=== PATIENT | female | born 1990 | race Caucasian/White ===

== ENCOUNTER 2017-09-27 17:57 | Emergency (ER) | payer OTHER ==
[2017-09-27 18:01] VITALS: BP 136/79; PULSE 79; RESP 18; TEMP 97.5
--- NOTE | 2017-09-27 18:54 | ED ---
Extremity Problem HPI - General Chief complaint: Extremity Problem,Nontraumatic Stated complaint: rt shoulder pain Time Seen by Provider: 09/27/17 18:34 Source: patient Mode of arrival: ambulatory Limitations: no limitations - History of Present Illness Initial comments: 26-year-old female patient presents to the emergency department today for evaluation of increased right shoulder pain over the last 4 days. Patient states that she has had joint pain intermittently over the last 9-10 months. Patient states she is approximately 6 weeks . Denies any abdominal pain , vaginal bleeding, or vaginal discharge. States she has been taking Tylenol and applying a heating pad to the painful areas where he doesn't seem to help much. Patient states that she did have an increase in this pain the last time she is as well. Patient states that she was instructed to follow-up with a neurologist but hasn't been able to do this yet. Patient is concerned she may have fibromyalgia. She denies any fevers or chills. She denies any known injuries. States that the pain does increase when she attempts to lift something or move the shoulder. Denies any joint redness or swelling. Patient denies any recent rash, shortness breath, chest pain, nausea, vomiting, diarrhea , constipation, numbness, tingling, dizziness, weakness, hematuria, dysuria, urinary urgency, urinary frequency, headache, visual changes, or any other complaints. - Related Data Home Medications Medication Instructions Recorded Confirmed Pnv,Calcium 72/Iron/Folic Acid 1 tab PO HS 01/28/16 09/27/17 [ Plus Tablet] Allergies Allergy/AdvReac Type Severity Reaction Status Date / Time Tetanus Vaccines and Toxoid Allergy Swelling Verified 09/27/17 18:55 [Tetanus Vaccines & Toxoid] Review of Systems ROS Statement: Those systems with pertinent positive or pertinent negative responses have been documented in the HPI. ROS Other: All systems not noted in ROS Statement are negative. Past Medical History Past Medical History: No Reported History History of Any Multi-Drug Resistant Organisms: None Reported Past Surgical History: No Surgical Hx Reported Past Anesthesia/Blood Transfusion Reactions: No Reported Reaction Past Psychological History: No Psychological Hx Reported Smoking Status: Former smoker Past Alcohol Use History: None Reported, Occasional Past Drug Use History: None Reported - Past Family History Mother Family Medical History: No Reported History General Exam Limitations: no limitations General appearance: alert, in no apparent distress, other (This is a well- developed, well-nourished adult female patient in no acute distress. Vital signs upon presentation are temperature 97.5F, pulse 79, respirations 18, blood pressure 136/79, pulse ox 100% on room air.) Eye exam: Present: normal appearance, PERRL, EOMI. Absent: scleral icterus, conjunctival injection, periorbital swelling ENT exam: Present: normal exam, normal oropharynx, mucous membranes moist Respiratory exam: Present: normal lung sounds bilaterally. Absent: respiratory distress, wheezes, rales, rhonchi, stridor Cardiovascular Exam: Present: regular rate, normal rhythm, normal heart sounds. Absent: systolic murmur, diastolic murmur, rubs, gallop, clicks GI/Abdominal exam: Present: soft, normal bowel sounds. Absent: distended, tenderness, guarding, rebound, rigid Extremities exam: Present: normal inspection, full ROM, normal capillary refill , other (Extremities are pink, warm, and dry. Cap refills less than 3 seconds. Radial pulses are 2+ and equal bilaterally). Absent: tenderness, pedal edema , joint swelling, calf tenderness Neurological exam: Present: alert, oriented X3, CN II-XII intact Psychiatric exam: Present: normal affect, normal mood Skin exam: Present: warm, dry, intact, normal color. Absent: rash Course Vital Signs 09/27/17 17:58 Temperature 97.5 F L Pulse Rate 79 Respiratory 18 Rate Blood Pressure 136/79 O2 Sat by Pulse 100 Oximetry Medical Decision Making - Medical Decision Making 26 old female patient proximal with weeks presented to the emergency department today for evaluation of joint pain especially to the right shoulder. Physical examination was unremarkable. Neurovascular status intact. Patient had no injury to the shoulder. She's had no fever, chills, red or swollen joints. Patient has been going on for the last 9 months or so. We did discuss limitations in our testing and treatment due to her being . Did discuss follow-up with her primary care physician for possible autoimmune testing and referral to rheumatology. She is instructed to follow-up with the neurologist that she has been instructed in the past. She is instructed take Tylenol for pain control. Apply warm moist heat to the painful areas. Gentle stretching exercises. Return parameters discussed in detail. She verbalizes understanding and agrees with this plan. Disposition Clinical Impression: Joint pain Disposition: HOME SELF-CARE Condition: Good Instructions: Arthralgia (ED), Shoulder Pain (ED) Additional Instructions: Continue taking tylenol for pain symptoms. Apply heat to painful areas. Perform gentle range of motion exercises. Follow up with OBGYN and discuss safe natural pain relief methods. Follow up with your primary care physician for autoimmune testing and possible referral to [facility]. Return here immediately for any new, worsening, or concerning symptoms. Is patient prescribed a controlled substance at d/c from ED?: No Referrals: Rhoda Jimenez MD [Primary Care Provider] - 1-2 days Time of Disposition: 18:54
== END 2017-09-27 18:57 | disposition home or self-care (01) ==
LOC: EC 17:57
DX: O99.89 Other specified diseases and conditions complicating pregnancy, childbirth and the puerperium (principal); M25.511 Pain in right shoulder; Z3A.01 Less than 8 weeks gestation of pregnancy; Z87.891 Personal history of nicotine dependence; Z88.7 Allergy status to serum and vaccine
CPT/HCPCS: 99283

== ENCOUNTER 2018-04-29 23:45 | Outpatient (CLI) | payer OTHER ==
[2018-04-30 02:38] VITALS: BP 134/88; PULSE 105; RESP 16; TEMP 97.8
--- NOTE | 2018-06-02 11:53 | P.MSEPDOC ---
Presenting Problems - Arrival Data Date of Arrival on Unit: 04/29/18 Time of Arrival on Unit: 23:45 Mode of Transport: Wheelchair - Complaint OB-Reason for Admission/Chief Complaint: Possible Onset of Labor Comment: contx 5 minutes apart since 2100. Medical History - Information : 7 Para: 4 Term: 4 : 0 Abortions: Spontaneous or Elective: 2 Number of Living Children: 4 - Gestational Age Gestational Age by NANCY (wks/days): 37 Weeks and 4 Days Review of Systems - Review of Systems Constitutional: No problems Breast: No problems ENT: No problems Cardiovascular: No problems Respiratory: No problems Gastrointestinal: No problems Genitourinary: No problems Musculoskeletal: No problems Neurological: No problems Skin: No problems Vital Signs - Temperature Temperature: 97.8 F Temperature Source: Axillary - Pulse Right Sitting Brachial Pulse Rate: 105 Pulse Assessment Method: Automatic Cuff - Respirations Respiratory Rate: 16 Oxygen Delivery Method: Room Air O2 Sat by Pulse Oximetry: 96 - Blood Pressure Right Arm Sitting Blood Pressure: 134/88 Blood Pressure Mean: 103 Blood Pressure Source: Automatic Cuff Medical Screen Scoring (Pre) - Cervical Exam Dilation: 1-3 cm = 1 Membranes: Intact - Uterine Contractions Frequency: > or = 36 weeks =2 Duration: > 40 seconds = 2 Intensity: N/A - Maternal Vital Signs Maternal Temperature: N/A Maternal Blood Pressure: N/A Signs of Preeclampsia: N/A Maternal Respirations: N/A - Pain Assessment Pain Location and Character: Lower, Abdomen Pain Scale Used: Numeric (1 - 10) Pain Intensity: 4 Pain Management Goal: 2 Pain Description: *Acute, Cramping Pain Radiation Location: n/a Pain Aggravating Factors: Activity - Assessment Baseline FHR: 150 Heart Rate - NICHD Category: Category I (Normal) = 0 NST: Reactive Position: N/A Station: N/A - Total Score Total Score (Pre): 5 - Level of Risk Level of Risk: Low (0-5) Physician Notification (Pre) - Physician Notified Physician Notified Date: 04/30/18 Physician Notified Time: 01:19 Physician/Practitioner Notifed:: uma Spoke With: uma New Order Received: Yes - Notification Comment Comment: monitor for another hour, recheck cervix and if no change, d/c home Disposition - Disposition OB Disposition: Discharge to home Discharge Date: 04/30/18 Discharge Time: 02:26 I agree with the RN Medical Screening Exam: Yes Risk & Benefit of care provided described in d/c instruction: Yes Diagnosis: FALSE LABOR AT OR AFTER 37 COMPLETED WEEKS OF GESTATION
== END 2018-04-30 02:26 | disposition home or self-care (01) ==
LOC: FBPOP 23:45
PROVIDERS: ATTEND Obstetrics & Gynecology
DX: O47.1 False labor at or after 37 completed weeks of gestation (principal); Z3A.37 37 weeks gestation of pregnancy
CPT/HCPCS: 59025; G0463; 99213

== ENCOUNTER 2018-05-14 05:49 | Inpatient (IN) | payer OTHER ==
[2018-05-14] MEDS ORDERED: OXYTOCIN 10 UNIT/ML 1 ML VIAL IM PRN (06:02)
[2018-05-14] MEDS ORDERED: LIDOCAINE 0.5% (PF) 5 MG/ML (50 ML SDV) SQ PRN (06:02)
[2018-05-14] MEDS ORDERED: CARBOPROST TROMETHAMINE 250 MCG/ML 1 ML AMP IM PRN (06:02)
[2018-05-14] MEDS ORDERED: TERBUTALINE 1 MG/ML VIAL SQ PRN (06:02)
[2018-05-14] MEDS ORDERED: METHYLERGONOVINE 0.2 MG/ML 1 ML AMP IM PRN (06:02)
[2018-05-14] MEDS: OXYTOCIN 20 UNITS/1000 ML NS 1,000 ML IV SCH (06:17)
[2018-05-14] MEDS: LACTATED RINGERS 1,000 ML IV SCH ×2 (06:17→10:19)
[2018-05-14 06:23] LABS: Basophils % (A) 0 %; Eosinophils # (A) 0.1 k/uL (0-0.7); Eosinophils % (A) 1 %; HCT 38.7 % (34.0-46.0); HGB 12.7 gm/dL (11.4-16.0); Lymphocytes # (A) 1.9 k/uL (1.0-4.8); Lymphocytes % (A) 19 %; MCH 29.5 pg (25.0-35.0); MCHC 32.7 g/dL (31.0-37.0); MCV 90.1 fL (80.0-100.0); Monocytes # (A) 0.4 k/uL (0-1.0); Monocytes % (A) 4 %; Neutrophils # (A) 7.3 k/uL (1.3-7.7); Neutrophils % (A) 72 %; Platelet Count 256 k/uL (150-450); RBC 4.29 m/uL (3.80-5.40); RDW 13.1 % (11.5-15.5); WBC 10.1 k/uL (3.8-10.6)
--- NOTE | 2018-05-14 08:31 | P.HPOB ---
History of Present Illness H&P Date: 05/14/18 Chief Complaint: IUP @ 39 4/7 weeks This is a 37-year-old 7 para 4024 at 39-4/7 weeks EDC of 05/17 consistent with LMP and 18 week ultrasound. Patient is noting good movement denies vaginal bleeding or loss of fluid at this time. On blood work she had a blood type of A+, rubella immune, hepatitis B surface antigen negative, HIV negative, RPR nonreactive, GBS negative. that presents to labor and delivery for elective induction of labor. Patient has been receiving care with myself since 13 weeks of gestation. Review of Systems Constitutional: Denies chills, Denies fatigue, Denies fever Ears, nose, mouth and throat: Denies headache Cardiovascular: Reports leg edema Respiratory: Denies cough, Denies dyspnea Gastrointestinal: Denies constipation, Denies diarrhea, Denies nausea, Denies vomiting Genitourinary: Denies Past Medical History Past Medical History: No Reported History History of Any Multi-Drug Resistant Organisms: None Reported Past Surgical History: No Surgical Hx Reported Past Anesthesia/Blood Transfusion Reactions: No Reported Reaction Past Psychological History: No Psychological Hx Reported Smoking Status: Never smoker Past Alcohol Use History: None Reported, Occasional Additional Past Alcohol Use History / Comment(s): none with Past Drug Use History: None Reported - Past Family History Mother Family Medical History: No Reported History Medications and Allergies Home Medications Medication Instructions Recorded Confirmed Type Pnv,Calcium 72/Iron/Folic Acid 1 tab PO HS 01/28/16 05/14/18 History [ Plus Tablet] Allergies Allergy/AdvReac Type Severity Reaction Status Date / Time amoxicillin Allergy Rash/Hives Verified 05/14/18 06:02 Tetanus Vaccines and Toxoid Allergy Swelling Verified 05/14/18 06:02 [Tetanus Vaccines & Toxoid] Exam Osteopathic Statement: *. No significant issues noted on an osteopathic structural exam other than those noted in the History and Physical/Consult. Vital Signs Temp Pulse Resp BP Pulse Ox 05/14/18 06:07 97.1 F L 81 18 132/87 96 Intake and Output 05/13/18 05/14/18 05/14/18 22:59 06:59 14:59 Other: Weight 79.379 kg Targeted physical exam was performed and the state in general this is a well- nourished well-developed female in no acute distress, she notes nonlabored breathing and lungs are clear to auscultation bilaterally, heart is noted to have regular rate and rhythm, abdomen is gravid and appropriate for gestational age, heart tones are noted to be reactive and she is jovan every 2-3 minutes on Pitocin. On cervical exam she is 3/50/-2 amniotomy is performed and clear fluid was obtained. Results Result Diagrams: 05/14/18 06:05 Assessment and Plan (1) Term Current Visit: Yes Status: Acute Code(s): Z34.80 - ENCOUNTER FOR SUPRVSN OF NORMAL , UNSP TRIMESTER SNOMED Code(s): 94497908 Plan: Patient is admitted for elective induction of labor, Pitocin induction of labor was begun this morning. Patient is undecided on pain management epidural is offered and she will decide as labor progresses. Anticipate spontaneous vaginal delivery later this afternoon.
[2018-05-14] MEDS ORDERED: BUTORPHANOL 1 MG/ML 1 ML VIAL IV PRN (11:03)
--- NOTE | 2018-05-14 12:56 | P.PROBDLV ---
Vaginal Delivery Note - . Vaginal Delivery Note: This is a very pleasant 27-year-old 7 para 4024 at 39-4/7 weeks that presents for elective induction of labor. Patient was started on Pitocin for induction of labor, and amniotomy was performed once regular contractions were noted. Clear fluid was noted on amniotomy. Patient progressed through labor eventually getting Stadol for pain relief. She progressed to complete began pushing and had a normal spontaneous vaginal delivery of a viable male , a loose nuchal cord was noted at delivery and this was delivered through. Afterwards the cord was then doubly clamped and cut and the infant was handed off to mom. A spontaneous cry was noted at the time of delivery. The placenta was then delivered spontaneously intact with a three-vessel cord being noted. On inspection the patient's vaginal vault no lacerations were noted. The uterus was noted to be firm and below the umbilicus at this time. Next para patient and tolerated delivery well and are resting comfortably.
[2018-05-14] MEDS ORDERED: BENZOCAINE/MENTHOL SPRAY 1 GM/SPRAY AEROSOL TOPICAL PRN (13:07)
[2018-05-14] MEDS ORDERED: ACETAMINOPHEN TAB 325 MG TAB PO PRN (13:07)
[2018-05-14] MEDS ORDERED: HYDROCORTISONE 2.5% RECTAL CREAM 30 GM TUBE RECTAL PRN (13:07)
[2018-05-14] MEDS ORDERED: diphenhydrAMINE 50 MG CAP PO PRN (13:07)
[2018-05-14] MEDS ORDERED: diphenhydrAMINE 50 MG/ML 1 ML VIAL IVP PRN ×2 (13:07)
[2018-05-14] MEDS ORDERED: ZOLPIDEM 5 MG TAB PO PRN (13:07)
[2018-05-14] MEDS ORDERED: WITCH HAZEL 1 EACH MED..PAD TOPICAL PRN (13:07)
[2018-05-14] MEDS ORDERED: diphenhydrAMINE 25 MG CAP PO PRN (13:07)
[2018-05-14] MEDS ORDERED: OXYTOCIN 20 UNITS/1000 ML NS 1,000 ML IV SCH (13:07)
[2018-05-14] MEDS ORDERED: SIMETHICONE 80 MG CHEWABLE PO PRN (13:07)
[2018-05-14] MEDS ORDERED: LANOLIN CREAM 5 GM TUBE TOPICAL PRN (13:07)
[2018-05-14] MEDS: IBUPROFEN 600 MG TAB PO PRN ×2 (16:05→22:40)
[2018-05-14] MEDS: SENNOSIDES-DOCUSATE SODIUM 1 EACH TAB PO SCH (20:13)
[2018-05-15 07:22] LABS: Basophils % (A) 0 %; Eosinophils # (A) 0.2 k/uL (0-0.7); Eosinophils % (A) 2 %; HCT 34.2 % (34.0-46.0); HGB 11.6 gm/dL (11.4-16.0); Lymphocytes # (A) 2.4 k/uL (1.0-4.8); Lymphocytes % (A) 21 %; MCH 30.5 pg (25.0-35.0); MCHC 33.8 g/dL (31.0-37.0); MCV 90.2 fL (80.0-100.0); Mean Platelet Volume 8.8; Monocytes # (A) 0.8 k/uL (0-1.0); Monocytes % (A) 7 %; Neutrophils # (A) 7.5 k/uL (1.3-7.7); Neutrophils % (A) 68 %; Platelet Count 219 k/uL (150-450); RDW 13.4 % (11.5-15.5); WBC 11.1 k/uL (3.8-10.6)
[2018-05-15] MEDS: IBUPROFEN 600 MG TAB PO PRN ×2 (07:45→20:47)
[2018-05-15] MEDS: SENNOSIDES-DOCUSATE SODIUM 1 EACH TAB PO SCH ×2 (07:45→20:47)
--- NOTE | 2018-05-15 08:06 | P.PNOBGVD ---
Subjective - Subjective Principal diagnosis: PPD 1 Interval history: Patient did well overnight. She has ambulated and voiding without difficulty. She is tolerating a regular diet without nausea or vomiting. She states her lochia is moderate. She denies pain or discomfort and wishes to stay until tomorrow. Patient reports: Reports appetite normal, Reports voiding normally, Reports pain well controlled, Reports ambulating normally [place]: doing well Objective - Latest Vital Signs Latest vital signs: Vital Signs Temp Pulse Resp BP Pulse Ox 05/15/18 00:00 74 16 115/70 05/14/18 19:48 97.3 F L 74 16 121/68 97 05/14/18 14:40 96.6 F L 76 16 118/73 05/14/18 13:35 70 16 117/83 05/14/18 13:00 77 16 114/67 05/14/18 12:45 68 16 109/57 05/14/18 12:30 96.9 F L 85 18 111/63 Intake and Output 05/14/18 05/15/18 05/15/18 22:59 06:59 14:59 Other: # Voids 2 1 - Exam Extremities: Present: normal Abdomen: Present: normal appearance, soft Uterus: Present: normal, firm - Labs Labs: Abnormal Lab Results - Last 24 Hours (Table) 05/15/18 Range/Units 07:02 WBC 11.1 H (3.8-10.6) k/uL Assessment and Plan (1) Term Current Visit: Yes Status: Acute Code(s): Z34.80 - ENCOUNTER FOR SUPRVSN OF NORMAL , UNSP TRIMESTER SNOMED Code(s): 49862290 (2) Status post vaginal delivery Current Visit: Yes Status: Acute Code(s): ZFH0386 - SNOMED Code(s): 922622386 Plan: Will continue routine care. Patient desires discharge home at 48 hours.
[2018-05-15] MEDS: PRENATAL VIT-IRON-FOLIC ACID 1 EACH CAP PO SCH ×2 (09:29→21:09)
[2018-05-16] MEDS: LACTATED RINGERS 1,000 ML IV SCH (06:22)
[2018-05-16] MEDS: OXYTOCIN 20 UNITS/1000 ML NS 1,000 ML IV SCH (06:29)
[2018-05-16] MEDS: SENNOSIDES-DOCUSATE SODIUM 1 EACH TAB PO SCH (08:00)
--- NOTE | 2018-05-16 08:14 | P.DS ---
Providers Date of admission: 05/14/18 05:49 Expected date of discharge: 05/16/18 Attending physician: Michelle Albert Primary care physician: Stated None - Discharge Diagnosis(es) (1) Term Current Visit: Yes Status: Acute (2) Status post vaginal delivery Current Visit: Yes Status: Acute Hospital Course: This is a very pleasant 27-year-old 7 para 4024 that presented to labor and delivery at 39-4/7 weeks for elective induction of labor. Patient was started on Pitocin and for induction of labor, amniotomy was performed and clear fluid was obtained. Patient progressed through labor eventually becoming uncomfortable and requesting Stadol 1. Patient progressed to complete began pushing and had normal spontaneous vaginal delivery of a viable male infant. Male delivered at 1219, weight of 7 lbs. 5 oz., Apgars of 9 and 9 at one and 5 minutes respectively. Patient's course has been uneventful. On this day #2 she is ambulating and voiding without difficulty. Her lochia is minimal. She denies concerns and is ready for discharge home. Patient Condition at Discharge: Good Plan - Discharge Summary New Discharge Prescriptions: No Action Pnv,Calcium 72/Iron/Folic Acid [ Plus Tablet] 1 tab PO HS Discharge Medication List Pnv,Calcium 72/Iron/Folic Acid [ Plus Tablet] 1 tab PO HS 01/28/16 [ History] Follow up Appointment(s)/Referral(s): Michelle Albert DO [Doctor of Osteopathic Medicine] - 4 Weeks Patient Instructions/Handouts: Vaginal Delivery (DC), Vaginal Delivery (GEN) Discharge Disposition: HOME SELF-CARE
[2018-05-16 17:12] VITALS: BP 98/54; PULSE 68; RESP 14; TEMP 98
== END 2018-05-16 20:33 | disposition home or self-care (01) | DRG 807 ==
LOC: 4FBP 05:49
PROVIDERS: ADMIT Obstetrics & Gynecology Obstetrics; ATTEND Obstetrics & Gynecology Obstetrics
PROC: 10E0XZZ Delivery of Products of Conception, External Approach (ICD-10-PCS; principal; 2018-05-14)
PROC: 10907ZC Drainage of Amniotic Fluid, Therapeutic from Products of Conception, Via Natural or Artificial Opening (ICD-10-PCS; 2018-05-14)
PROC: 3E033VJ Introduction of Other Hormone into Peripheral Vein, Percutaneous Approach (ICD-10-PCS; 2018-05-14)
DX: O69.81X0 Labor and delivery complicated by cord around neck, without compression, not applicable or unspecified (principal); Z37.0 Single live birth; Z3A.39 39 weeks gestation of pregnancy; Z88.0 Allergy status to penicillin; Z88.7 Allergy status to serum and vaccine
CPT/HCPCS: 85025; 86850; 86900; 86901

== ENCOUNTER 2019-04-03 21:05 | Emergency (ER) | payer OTHER ==
[2019-04-03 21:28] VITALS: BP 117/79; PULSE 78; RESP 16; TEMP 97.8
--- NOTE | 2019-04-03 21:42 | ED ---
Skin/Abscess/FB HPI - General Chief complaint: Skin/Abscess/Foreign Body Stated complaint: Skin Check Time Seen by Provider: 04/03/19 21:29 Source: patient Mode of arrival: ambulatory Limitations: no limitations - History of Present Illness Initial comments: 28 year female presenting for lice check. Mother states she is currently in a retirement was told she needed to have her head checked for lice. Patient states she has had some dry scalp, with mild itching. Denies noting any live insects. Remaining review of systems negative - Related Data Home Medications Medication Instructions Recorded Confirmed Pnv,Calcium 72/Iron/Folic Acid 1 tab PO HS 01/28/16 05/14/18 [ Plus Tablet] Previous Rx's Medication Instructions Recorded Permethrin 1% Creme Rinse [Nix 1 applicate TOPICAL ONCE 1 Days #1 04/03/19 Creme Rinse] bottle Allergies Allergy/AdvReac Type Severity Reaction Status Date / Time amoxicillin Allergy Rash/Hives Verified 04/03/19 21:26 Tetanus Vaccines and Toxoid Allergy Swelling Verified 04/03/19 21:26 [Tetanus Vaccines & Toxoid] Review of Systems ROS Statement: Those systems with pertinent positive or pertinent negative responses have been documented in the HPI. ROS Other: All systems not noted in ROS Statement are negative. Past Medical History Past Medical History: No Reported History History of Any Multi-Drug Resistant Organisms: None Reported Past Surgical History: No Surgical Hx Reported Past Anesthesia/Blood Transfusion Reactions: No Reported Reaction Past Psychological History: No Psychological Hx Reported Smoking Status: Never smoker Past Alcohol Use History: None Reported, Occasional Past Drug Use History: None Reported - Past Family History Mother Family Medical History: No Reported History General Exam - General Exam Comments Initial Comments: General: The patient is awake and alert, in no distress, and does not appear acutely ill. Eye: +3 mm pupils are equal, round and reactive to light, extra-ocular movements are intact. No nystagmus. There is normal conjunctiva bilaterally. No signs of icterus. Musculoskeletal: Normal ROM, no tenderness. Strength 5/5. Sensation intact. Radial pulses equal bilaterally 2+. Neurological: A&O x 3. CN II-XII intact grossly, There are no obvious motor or sensory deficits. Coordination appears grossly intact. Speech is normal. Skin: Skin is warm and dry and no rashes or lesions are noted. No infestation of hair noted. Dry scalp. No nits appreciated. Psychiatric: Cooperative, appropriate mood & affect, normal judgment. Limitations: no limitations Course Vital Signs 04/03/19 21:26 Temperature 97.8 F Pulse Rate 78 Respiratory 16 Rate Blood Pressure 117/79 O2 Sat by Pulse 98 Oximetry Medical Decision Making - Medical Decision Making 28-year-old female presenting today for chief complaint of lice check. No evidence of live infestation. No nits appreciated. Patient does have some dry areas of the scalp. No other abnormalities, given there is known infestation was in the retirement recommend treatment. Disposition Clinical Impression: Dry scalp Disposition: HOME SELF-CARE Condition: Good Instructions (If sedation given, give patient instructions): Pediculosis (ED) Additional Instructions: Please use medication as discussed. Please return to emergency room if the symptoms increase or worsen or for any other concerns. Prescriptions: Permethrin 1% Creme Rinse [Nix Creme Rinse] 1 applicate TOPICAL ONCE 1 Days #1 bottle Is patient prescribed a controlled substance at d/c from ED?: No Referrals: Rhoda Jimenez MD [Primary Care Provider] - 1-2 days Time of Disposition: 21:41
== END 2019-04-03 22:21 | disposition home or self-care (01) ==
LOC: EC 21:05
DX: L98.8 Other specified disorders of the skin and subcutaneous tissue (principal); Z88.0 Allergy status to penicillin; Z88.7 Allergy status to serum and vaccine
CPT/HCPCS: 99282

== ENCOUNTER 2020-02-25 23:06 | Emergency (ER) | payer OTHER ==
[2020-02-25 23:12] VITALS: TEMP 97.7
[2020-02-25] MEDS ORDERED: LORazepam 1 MG TAB PO STA (23:31)
--- NOTE | 2020-02-26 00:01 | ED ---
Chest Pain HPI - General Chief Complaint: Chest Pain Stated Complaint: Chest Pain Time Seen by Provider: 02/25/20 23:14 Source: patient Mode of arrival: ambulatory Limitations: no limitations - History of Present Illness Initial Comments: Patient is a 29-year-old female presenting to the emergency Department with complaints of chest pain that has been ongoing for the past 2 hours. 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 She thought that it could be her anxiety flaring up but then she started to feel some numbness going into her right hand and arm and then got worried. Patient states she does have a history of anxiety but has never had the numbness into her hands. She denies any recent fever, chills, cough, chest congestion. She denies history of blood clots. She denies any palpitations, recent travel. She is not on control. She states she is not at this time. She denies any medications, drug use. She has no further complaints at this time. Upon arrival to the ER, her vital signs are stable. - Related Data Home Medications Medication Instructions Recorded Confirmed Pnv,Calcium 72/Iron/Folic Acid 1 tab PO HS 01/28/16 05/14/18 [ Plus Tablet] Previous Rx's Medication Instructions Recorded Permethrin 1% Creme Rinse [Nix 1 applicate TOPICAL ONCE 1 Days #1 04/03/19 Creme Rinse] bottle LORazepam [Ativan] 1 mg PO HS 3 Days #3 tab 02/26/20 Allergies Allergy/AdvReac Type Severity Reaction Status Date / Time amoxicillin Allergy Rash/Hives Verified 02/25/20 23:12 Tetanus Vaccines and Toxoid Allergy Swelling Verified 02/25/20 23:12 [Tetanus Vaccines & Toxoid] Review of Systems ROS Statement: Those systems with pertinent positive or pertinent negative responses have been documented in the HPI. ROS Other: All systems not noted in ROS Statement are negative. EKG Findings - EKG Comments: EKG Findings:: Normal sinus rhythm with sinus arrhythmia, no signs of acute ischemia. Ventricular rate 71, NH interval 148, QTC 414. Past Medical History Past Medical History: No Reported History History of Any Multi-Drug Resistant Organisms: None Reported Past Surgical History: No Surgical Hx Reported Past Anesthesia/Blood Transfusion Reactions: No Reported Reaction Past Psychological History: No Psychological Hx Reported Smoking Status: Former smoker Past Alcohol Use History: Occasional Past Drug Use History: None Reported - Past Family History Mother Family Medical History: No Reported History General Exam - General Exam Comments Initial Comments: GENERAL: Patient is well-developed and well-nourished. Patient is nontoxic and in no acute distress, appears mildly anxious. HEAD: Atraumatic, normocephalic. EYES: Pupils equal round and reactive to light, extraocular movements intact, sclera anicteric, conjunctiva are normal. Eyelids were unremarkable. ENT: TMs normal, nares patent, oropharynx clear without exudates. Moist mucous m embranes. NECK: Normal range of motion, supple without lymphadenopathy or JVD. LUNGS: Unlabored respirations. Breath sounds clear to auscultation bilaterally and equal. No wheezes rales or rhonchi. HEART: Regular rate and rhythm without murmurs, rubs or gallops. ABDOMEN: Soft, nontender, normoactive bowel sounds. No guarding, no rebound. No masses appreciated. : Deferred MUSCULOSKELETAL: Normal extremities with adequate strength and normal range of motion, no pitting or edema. No clubbing or cyanosis. NEUROLOGICAL: Patient is alert and oriented x 3. Motor and sensory are also intact. Cranial nerves II through XII grossly intact. Symmetrical smile. Normal speech, normal gait. PSYCH: Normal mood, normal affect, mildly anxious. SKIN: Warm, Dry, normal turgor, no rashes or lesions noted. 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 She does have a history of anxiety. Her exam is unremarkable. Patient states she is having is having some tingling into her right hand. EKG shows normal sinus rhythm, no signs of acute ischemia. Chest x-ray shows no acute process. I did give patient a tablet of Ativan, she states improvement in her symptoms. She states the tingling has gone away, she is no longer having the chest discomfort. Patient states she will follow-up with her doctor regarding her anxiety. I will give her prescription for a few tablets of Ativan in the meantime. She is stable for discharge and she is in agreement with this plan of care. Return parameters were discussed with the patient and she verbalized understanding. Case discussed with Dr. [place]ellin. Disposition Clinical Impression: Atypical chest pain, Anxiety Disposition: HOME SELF-CARE Condition: Stable Instructions (If sedation given, give patient instructions): Anxiety (ED) Additional Instructions: Please return to the Emergency Department if symptoms worsen or any other concerns. Workup today was normal. May take an additional tablet of Ativan for similar symptoms. Please follow-up with PCP regarding anxiety and further management. Prescriptions: LORazepam [Ativan] 1 mg PO HS 3 Days #3 tab Is patient prescribed a controlled substance at d/c from ED?: Yes When asked, does pt state using other controlled substances?: No If prescribed controlled substance>3 days was MAPS reviewed?: Prescribed <3 Days Referrals: Rhoda Jimenez MD [Primary Care Provider] - 1-2 days
--- NOTE | 2020-02-26 00:16 | XR ---
EXAMINATION TYPE: XR chest 2V DATE OF EXAM: 02/26/2020 COMPARISON: NONE HISTORY: Chest pain TECHNIQUE: FINDINGS: Heart and mediastinum are normal. Lungs are clear. Diaphragm is normal. Bony thorax appears normal. IMPRESSION: Normal chest.
[2020-02-26 01:33] VITALS: BP 121/89; PULSE 58; RESP 17
== END 2020-02-26 01:28 | disposition home or self-care (01) ==
LOC: EC 23:06
DX: R07.89 Other chest pain (principal); F41.9 Anxiety disorder, unspecified; Z87.891 Personal history of nicotine dependence; Z88.0 Allergy status to penicillin; Z88.7 Allergy status to serum and vaccine
CPT/HCPCS: 71046; 93005; 99285

== ENCOUNTER 2024-01-11 18:52 | Emergency (ER) | payer OTHER ==
--- NOTE | 2024-01-11 19:32 | ED ---
Abdominal Pain HPI - General Chief Complaint: Abdominal Pain Stated Complaint: abd pain/R side pain Time Seen by Provider: 01/11/24 19:13 Source: patient, RN notes reviewed Mode of arrival: ambulatory Limitations: no limitations - History of Present Illness Initial Comments: This is a 33-year-old female who presents to the emergency department for abdomi nal pain. States that this started as more of an intermittent sharp pain in her abdomen yesterday, but has since become more constant and seems to be going between the left and right lower quadrant. Denies any nausea/vomiting or changes in bowel or bladder habits. Denies any fever/chills or history of similar pain in the past. MD Complaint: abdominal pain - Related Data Home Medications Medication Instructions Recorded Confirmed Pnv,Calcium 72/Iron/Folic Acid 1 tab PO HS 01/28/16 05/14/18 [ Plus Tablet] Previous Rx's Medication Instructions Recorded Permethrin 1% Creme Rinse [Nix 1 applicate TOPICAL ONCE 1 Days #1 04/03/19 Creme Rinse] bottle LORazepam [Ativan] 1 mg PO HS 3 Days #3 tab 02/26/20 Ketorolac [Toradol] 10 mg PO Q6HR PRN #15 tab 01/12/24 Allergies Allergy/AdvReac Type Severity Reaction Status Date / Time amoxicillin Allergy Rash/Hives Verified 01/11/24 19:00 Tetanus Vaccines and Toxoid Allergy Swelling Verified 01/11/24 19:00 [Tetanus Vaccines & Toxoid] Review of Systems ROS Statement: Those systems with pertinent positive or pertinent negative responses have been documented in the HPI. ROS Other: All systems not noted in ROS Statement are negative. Past Medical History Past Medical History: No Reported History History of Any Multi-Drug Resistant Organisms: None Reported Past Surgical History: No Surgical Hx Reported Past Anesthesia/Blood Transfusion Reactions: No Reported Reaction Past Psychological History: No Psychological Hx Reported Smoking Status: Former smoker Past Alcohol Use History: Occasional Past Drug Use History: None Reported - Past Family History Mother Family Medical History: No Reported History General Exam Limitations: no limitations General appearance: alert, in no apparent distress Head exam: Present: atraumatic, normocephalic, normal inspection Respiratory exam: Present: normal lung sounds bilaterally. Absent: respiratory distress, wheezes, rales, rhonchi, stridor Cardiovascular Exam: Present: regular rate, normal rhythm, normal heart sounds. Absent: systolic murmur, diastolic murmur, rubs, gallop, clicks GI/Abdominal exam: Present: soft, tenderness (RLQ), normal bowel sounds. Absent: distended Neurological exam: Present: alert, oriented X3, CN II-XII intact Psychiatric exam: Present: normal affect, normal mood Skin exam: Present: warm, dry, intact, normal color. Absent: rash Course Vital Signs 01/11/24 01/11/24 01/12/24 18:56 21:51 00:00 Temperature 97.9 F Pulse Rate 75 70 79 Respiratory 16 16 18 Rate Blood Pressure 127/88 115/79 113/80 O2 Sat by Pulse 100 100 97 Oximetry 01/12/24 01/12/24 03:21 04:23 Temperature 97.7 F Pulse Rate 70 64 Respiratory 18 17 Rate Blood Pressure 102/76 113/81 O2 Sat by Pulse 97 100 Oximetry Medical Decision Making - Medical Decision Making This is a 33 year old female who presents to the emergency department for abdominal pain. Was pt. sent in by a medical professional or institution? @ -No Did you speak to anyone other than the patient for history? @ -No Did you review nursing and triage notes? @ -Yes, and I agree, it is accurate with regards to the patient's symptoms. Were old charts reviewed? @ -No Differential Diagnosis? @ -Differential Abdominal Pain Women: Appendicitis, Cholecystitis, diverticulosis, ischemic bowel, pancreatitis, hepatitis, UTI, gastroenteritis, AAA, incarcerated hernia, bowel obstruction, constipation, inflammatory bowel, hepatitis, peptic ulcer disease, splenic infarction, perforated viscus, vulvitis, ovarian torsion, PID, kidney stone, placenta abruption, this is not meant to be an all-inclusive list EKG interpreted by me (3pts min.)? @ -Not obtained X-rays interpreted by me (1pt min.)? @ -Not obtained CT interpreted by me (1pt min.)? @ -CT scan of the abdomen and pelvis obtained. My interpretation identifies no dilation of large or small bowel loops. U/S interpreted by me (1pt. min.)? @ -Pelvic ultrasound obtained. My interpretation identifies no evidence of ovarian torsion. What testing was considered but not performed? (CT, X-rays, U/S, labs)? Why? @ -None What meds were considered but not given? Why? @ -None Did you discuss the management of the patient with other professionals? @ -No Did you reconcile home meds? @ -No Was smoking cessation discussed for >3mins.? @ -No Was critical care preformed (if so, how long)? @ -No Were there social determinants of health that impacted care today? How? (Homelessness, low income, unemployed, alcoholism, drug addiction, transportation, low edu. Level, literacy, decrease access to med. care, penitentiary, rehab)? @ -No Was there de-escalation of care discussed even if they declined? (Discuss DNR or withdrawal of care, Hospice)? @ -No What co-morbidities impacted this encounter? (DM, HTN, Smoking, COPD, CAD, Cancer, CVA, Hep., AIDS, mental health diagnosis, sleep apnea, morbid obesity)? @ -None Was patient admitted / discharged? @ -Discharged. Lab work unremarkable. Urinalysis negative for signs of infection. CT scan of the abdomen and pelvis obtained revealing no acute process. She did continue to complain of severe lower abdominal/pelvic pain and we subsequently proceeded with a pelvic ultrasound for evaluation. This revealed a heterogeneously dense retroverted uterus and a 1.6 cm left ovarian simple cyst. Findings reviewed with the patient. Symptoms well-controlled in emergency department. Advised to follow-up with [facility] regarding the heterogeneously dense uterus in the event she has something like adenomyosis or endometriosis contributing to her symptoms. Prescription for Toradol provided for symptomatic management. Patient discharged home in stable condition. Case discussed with ED attending Dr. Sahu. Return precautions reviewed in depth, the patient is instructed to return to the emergency department with any new, worsening, or concerning symptoms. Patient verbalized understanding. Undiagnosed new problem with uncertain prognosis? @ -None Drug Therapy requiring intensive monitoring for toxicity (Heparin, Nitro, Insulin, Cardizem)? @ -None Were any procedures done? @ -None Diagnosis/symptom? @ -Abdominal pain, abnormal uterus on ultrasound Acute, or Chronic, or Acute on Chronic? @ -Acute Uncomplicated (without systemic symptoms) or Complicated (systemic symptoms)? @ -Uncomplicated Side effects of treatment? @ -None Exacerbation, Progression, or Severe Exacerbation] @ -Not applicable Poses a threat to life or bodily function? @ -Unlikely - Lab Data Result diagrams: 01/11/24 19:31 01/11/24 19:31 Lab Results 01/11/24 01/11/24 01/11/24 Range/Units 19:31 19:31 19:31 WBC 7.5 (3.8-10.6) k/uL RBC 4.36 (3.80-5.40) m/uL Hgb 13.6 (11.4-16.0) gm/dL Hct 40.4 (34.0-46.0) % MCV 92.7 (80.0-100.0) fL MCH 31.2 (25.0-35.0) pg MCHC 33.6 (31.0-37.0) g/dL RDW 12.7 (11.5-15.5) % Plt Count 267 (150-450) k/uL MPV 8.2 Neutrophils % 61 % Lymphocytes % 28 % Monocytes % 6 % Eosinophils % 1 % Basophils % 1 % Neutrophils # 4.6 (1.3-7.7) k/uL Lymphocytes # 2.1 (1.0-4.8) k/uL Monocytes # 0.5 (0-1.0) k/uL Eosinophils # 0.1 (0-0.7) k/uL Basophils # 0.0 (0-0.2) k/uL Sodium 138 (137-145) mmol/L Potassium 4.6 (3.5-5.1) mmol/L Chloride 105 (98-107) mmol/L Carbon Dioxide 26 (22-30) mmol/L Anion Gap 7 mmol/L BUN 9 (7-17) mg/dL Creatinine 0.83 (0.52-1.04) mg/dL Est GFR (CKD-EPI)AfAm >90 (>60 ml/min/1.73 sqM) Est GFR (CKD-EPI)NonAf >90 (>60 ml/min/1.73 sqM) Glucose 104 H (74-99) mg/dL Plasma Lactic Acid Lalo 0.9 (0.7-2.0) mmol/L Calcium 9.2 (8.4-10.2) mg/dL Total Bilirubin 0.7 (0.2-1.3) mg/dL AST 21 (14-36) U/L ALT 11 (4-34) U/L Alkaline Phosphatase 35 L (38-126) U/L Total Protein 6.4 (6.3-8.2) g/dL Albumin 3.9 (3.5-5.0) g/dL Amylase 57 (30-110) U/L Lipase 173 (23-300) U/L HCG, Qual Not Detected Urine Color Urine Appearance (Clear) Urine pH (5.0-8.0) Ur Specific [place] (1.001-1.035) Urine Protein (Negative) Urine Glucose (UA) (Negative) Urine Ketones (Negative) Urine Blood (Negative) Urine Nitrite (Negative) Urine Bilirubin (Negative) Urine Urobilinogen (<2.0) mg/dL Ur Leukocyte Esterase (Negative) Urine HCG, Qual (Not Detectd) 01/11/24 01/11/24 Range/Units 19:32 19:32 WBC (3.8-10.6) k/uL RBC (3.80-5.40) m/uL Hgb (11.4-16.0) gm/dL Hct (34.0-46.0) % MCV (80.0-100.0) fL MCH (25.0-35.0) pg MCHC (31.0-37.0) g/dL RDW (11.5-15.5) % Plt Count (150-450) k/uL MPV Neutrophils % % Lymphocytes % % Monocytes % % Eosinophils % % Basophils % % Neutrophils # (1.3-7.7) k/uL Lymphocytes # (1.0-4.8) k/uL Monocytes # (0-1.0) k/uL Eosinophils # (0-0.7) k/uL Basophils # (0-0.2) k/uL Sodium (137-145) mmol/L Potassium (3.5-5.1) mmol/L Chloride (98-107) mmol/L Carbon Dioxide (22-30) mmol/L Anion Gap mmol/L BUN (7-17) mg/dL Creatinine (0.52-1.04) mg/dL Est GFR (CKD-EPI)AfAm (>60 ml/min/1.73 sqM) Est GFR (CKD-EPI)NonAf (>60 ml/min/1.73 sqM) Glucose (74-99) mg/dL Plasma Lactic Acid Lalo (0.7-2.0) mmol/L Calcium (8.4-10.2) mg/dL Total Bilirubin (0.2-1.3) mg/dL AST (14-36) U/L ALT (4-34) U/L Alkaline Phosphatase (38-126) U/L Total Protein (6.3-8.2) g/dL Albumin (3.5-5.0) g/dL Amylase (30-110) U/L Lipase (23-300) U/L HCG, Qual Urine Color Yellow Urine Appearance Clear (Clear) Urine pH 5.5 (5.0-8.0) Ur Specific [place] 1.033 (1.001-1.035) Urine Protein Trace H (Negative) Urine Glucose (UA) Negative (Negative) Urine Ketones Negative (Negative) Urine Blood Negative (Negative) Urine Nitrite Negative (Negative) Urine Bilirubin Negative (Negative) Urine Urobilinogen <2.0 (<2.0) mg/dL Ur Leukocyte Esterase Negative (Negative) Urine HCG, Qual Not Detected (Not Detectd) - Radiology Data Radiology results: report reviewed, image reviewed Disposition Clinical Impression: Abdominal pain, Abnormal ultrasound of uterus Disposition: HOME SELF-CARE Instructions (If sedation given, give patient instructions): Pelvic Pain in Women (ED), Abdominal Pain (ED) Additional Instructions: Return to the emergency department with any new, worsening, or concerning symptoms. Take the Toradol with Tylenol as needed for pain relief. If you choose to take the Toradol, do not take any other anti-inflammatories such as ibuprofen, take one or the other. Contact the [facility] office listed below for follow-up appointment and further evaluation of your ongoing symptoms. Your ultrasound showed that your uterus appeared heterogeneously dense. Prescriptions: Ketorolac [Toradol] 10 mg PO Q6HR PRN #15 tab PRN Reason: Pain Is patient prescribed a controlled substance at d/c from ED?: No Referrals: None,Stated [Primary Care Provider] - 1-2 days Larisa Parra MD [STAFF PHYSICIAN] - 1-2 days Forms: PH Area PCPs Time of Disposition: 04:16
[2024-01-11] MEDS: KETOROLAC 15 MG/ML 1 ML VIAL IVP STA ×2 (19:37→21:00)
[2024-01-11] MEDS: SODIUM CHLORIDE 0.9% 1,000 ML IV STA (19:38)
[2024-01-11 19:46] LABS: Basophils % (A) 1 %; Eosinophils # (A) 0.1 k/uL (0-0.7); Eosinophils % (A) 1 %; HCT 40.4 % (34.0-46.0); HGB 13.6 gm/dL (11.4-16.0); Lymphocytes # (A) 2.1 k/uL (1.0-4.8); Lymphocytes % (A) 28 %; MCH 31.2 pg (25.0-35.0); MCHC 33.6 g/dL (31.0-37.0); MCV 92.7 fL (80.0-100.0); Mean Platelet Volume 8.2; Monocytes # (A) 0.5 k/uL (0-1.0); Monocytes % (A) 6 %; Neutrophils # (A) 4.6 k/uL (1.3-7.7); Neutrophils % (A) 61 %; Platelet Count 267 k/uL (150-450); RBC 4.36 m/uL (3.80-5.40); RDW 12.7 % (11.5-15.5); WBC 7.5 k/uL (3.8-10.6)
[2024-01-11 20:04] LABS: ALT 11 U/L (4-34); AST 21 U/L (14-36); African American GFR (CKD) >90 (>60 ml/min/1.73 sqM); Albumin 3.9 g/dL (3.5-5.0); Alkaline Phosphatase 35 U/L (38-126); Amylase 57 U/L (30-110); Anion Gap 7 mmol/L; Blood Urea Nitrogen 9 mg/dL (7-17); Calcium 9.2 mg/dL (8.4-10.2); Carbon Dioxide 26 mmol/L (22-30); Chloride 105 mmol/L (98-107); Glucose 104 mg/dL (74-99); Lipase 173 U/L (23-300); Non-African American GFR(CKD) >90 (>60 ml/min/1.73 sqM); Potassium 4.6 mmol/L (3.5-5.1); Sodium 138 mmol/L (137-145); Total Bilirubin 0.7 mg/dL (0.2-1.3); Total Protein 6.4 g/dL (6.3-8.2)
[2024-01-11 20:07] LABS: HCG,Qualitative Serum Not Detected
[2024-01-11 20:12] LABS: Appearance,Urine Clear (Clear); Bilirubin,Urine Negative (Negative); Blood,Urine Negative (Negative); Color,Urine Yellow; Glucose,Urine (UA) Negative (Negative); Ketones,Urine Negative (Negative); Leukocyte Esterase,Urine Negative (Negative); Nitrite,Urine Negative (Negative); PH, Urine 5.5 (5.0-8.0); Protein,Urine Trace (Negative); Specific Gravity,Urine 1.033 (1.001-1.035); Urobilinogen,Urine <2.0 mg/dL (<2.0)
[2024-01-11] MEDS: MORPHINE SULFATE 4 MG/ML SYRINGE IVP STA (21:00)
--- NOTE | 2024-01-11 21:28 | CT ---
EXAMINATION TYPE: CT abdomen pelvis w con DATE OF EXAM: 01/11/2024 COMPARISON: None INDICATION: Lower abdominal pain x 2 weeks DLP: 674.1 mGycm, Automated exposure control for dose reduction was used. CONTRAST: 100 mL of Isovue 300. Study performed without Oral Contrast TECHNIQUE: Axial images were obtained from above the diaphragm to the pubic rami in the axial plane a t 5 mm thick sections. Reconstructed images are reviewed on the computer in the coronal plane. FINDINGS: Limited CT sections are obtained the lung bases. The lung bases are clear. CT ABDOMEN: Liver: Normal Spleen: Normal Pancreas: Normal Adrenal glands: The adrenal glands are normal. Gallbladder: Normal Kidneys: No masses are evident. No hydronephrosis is present. No cysts are present. No renal stone s are evident. Delayed images were obtained through the kidneys which remain unremarkable. Aorta: Normal Inferior vena cava: Normal. CT PELVIS: Loops of bowel within the abdomen and pelvis are normal. There are loops of bowel which are incom pletely distended or lack oral contrast limiting their evaluation. Appendix: Normal as visualized. Urinary bladder: Decompressed with limited evaluation Genitourinary structures: Uterus is normal. Multiple follicles are present on the bilateral ovaries. Osseous structures: No suspicious lytic or sclerotic lesions. IMPRESSION: 1. No suspicious acute abdomen abnormality account for left lower quadrant pain. 2. The appendix as visualized appears unremarkable. No dilated tubular structure or inflammatory pedro ges right lower quadrant.
[2024-01-11] MEDS: HYDROmorphone 1 MG/ML 1 ML SYRINGE IVP STA (21:55)
--- NOTE | 2024-01-12 04:07 | US ---
EXAM: US Pelvis Transvaginal CLINICAL HISTORY: ITS.REASON US Reason: Pelvic pain. LMP: 12/18/2023 TECHNIQUE: Real-time transvaginal pelvic ultrasound with image documentation. Transvaginal imaging was used for better evaluation of the endometrium and adnexa. COMPARISON: None. FINDINGS: Uterus/cervix: Heterogeneously dense retroverted uterus measures 8.6 x 4.9 x 5.9 cm in size.. No discernible myometrial mass. Normal endometrial stripe thickness: 12 mm. Right ovary: 4.1 x 2.7 x 2.6 cm. No mass. Multiple small follicles. Normal blood flow. Left ovary: 3.5 x 2.5 x 3.5 cm. A 1.6 x 1.3 cm simple cyst. Few small follicles. No solid mass. Normal blood flow. There is no evidence of ovarian torsion. Posterior cul-de-sac: Within normal limits. Bilateral adnexa: Obscured by overlying bowel gas. Empty bladder which cannot be evaluated with this probe.: . IMPRESSION: A heterogeneously dense retroverted uterus. A 1.6 cm left ovarian simple cyst. Otherwise unremarkable transvaginal pelvic ultrasound exam. .
[2024-01-12] MEDS: ACET/COD 300 MG/30 MG STARTER PACK 6 TAB BTL PO STA (04:21)
[2024-01-12 04:29] VITALS: BP 113/81; PULSE 64; RESP 17; TEMP 97.7
== END 2024-01-12 04:29 | disposition home or self-care (01) ==
LOC: EC 18:52
CPT/HCPCS: 36415; 74177; 76830; 80053; 81003; 81025; 82150; 83605; 83690; 84703; 85025; 93975; 96361; 96374; 96375; 99284